=== PATIENT | female | born 1990 | race Caucasian/White ===

== ENCOUNTER 2020-01-14 18:40 | Emergency (ER) | payer SELFPAY ==
[2020-01-14 19:12] VITALS: BP 137/86
[2020-01-14] MEDS ORDERED: TETRACAINE HCL 0.5% OPH SOLN 4 ML OS ONE (20:39)
--- NOTE | 2020-01-16 10:32 | ER Document Report ---
ED Medical Screen (RME) - General Chief Complaint: Eye Injury Stated Complaint: EYE INJURY Time Seen by Provider: 01/14/20 20:35 Mode of Arrival: Ambulatory Information source: Patient Notes: HPI; 29-year-old female presents to the emergency room complaining of left eye pain. States her daughter accidentally poked her in the eye yesterday. Complains of severe pain and tearing. No changes in vision. No use of contacts but does wear glasses. No meds for treatment prior to arrival. PE: Alert and oriented x3. Unable to do full eye exam in triage. Lungs: Clear to auscultation without rales, rhonchi, wheezes. Heart: Regular rate rhythm without murmurs, rubs, gallops. I have greeted and performed a rapid initial assessment of this patient. A comprehensive ED assessment and evaluation of the patient, analysis of test results and completion of the medical decision making process will be conducted by additional ED providers. I have specifically instructed the patient or family members with the patient to immediately return to any nursing staff should anything change in the patient's condition or with their chief complaint. TRAVEL OUTSIDE OF THE [place] IN LAST 30 DAYS: No - Related Data Allergies/Adverse Reactions: No Known Allergies Allergy (Unverified 01/14/20 20:35) Past Medical History - Social History Frequency of alcohol use: Occasional Drug Abuse: Marijuana Physical Exam - Vital signs Vitals: Temp Pulse Resp BP Pulse Ox 98.4 F 88 18 137/86 H 99 01/14/20 19:10 01/14/20 19:10 01/14/20 19:10 01/14/20 19:10 01/14/20 19:10 Course - Vital Signs Vital signs: Temp Pulse Resp BP Pulse Ox 98.4 F 88 18 137/86 H 99 01/14/20 19:10 01/14/20 19:10 01/14/20 19:10 01/14/20 19:10 01/14/20 19:10 Doctor's Discharge - Discharge Disposition: ELOPED
== END 2020-01-14 23:15 | disposition left against medical advice (07) ==
LOC: ER 18:40
DX: Z53.21 Procedure and treatment not carried out due to patient leaving prior to being seen by health care provider (principal)
CPT/HCPCS: J3490